=== PATIENT | female | born 1965 | race African-American/Black ===

== ENCOUNTER → 2018-03-09 | Day surgery (SDC) | payer OTHER ==
[~2018-03-09] MED LIST: AMLODIPINE BESY10 MG PO; FENTANYL CITRATE/PF 100MCG/2 ML INJ ONE; GLUCOPHAGE500 MG PO; HYDROXYZINE HCL25 MG PO; HYOSCYAMINE SULFATE 0.5 MG/ML AMP ONE; LIDOCAINE HCL 2% LOCAL INJ 5 ML SDV VIAL INJ ONE; LOVASTATIN10 MG PO; MIDAZOLAM HCL 2 MG/2 ML VIAL ONE; PREDNISONE10 MG PO; PROPOFOL IV EMULSION 10 MG/ML 20 ML VIAL ONE
--- OUTSIDE RECORDS SUMMARY | 2018-03-09 06:56 | XMS REPORT ---
Author Author Admin, [facility] [place] Address Unknown Phone Unavailable Allergies, Adverse Reactions, Alerts Allergy Name Reaction Description Start Date Severity Status Provider No Known Allergies Court Johnson MA Conditions or Problems Problem Name Problem Code Onset Date Status Entry Date Provider Comment Standard Description Annotate C-reactive protein, serum, elevated 790.95 Active Shellie HUYNH Elevated C-reactive protein (CRP) Diabetes mellitus, type II 250.00 Active Shellie ROTHP Diabetes mellitus without mention of complication, type II or unspecified type, not stated as uncontrolled Joint pain 719.40 Active Shellie ROTHP Pain in joint, site unspecified generalized joint pain Annual exam V70.0 Active Shellie ROTHP Routine general medical examination at a health care facility Blood in stools 578.1 Active Shellie HUYNH Blood in stool Evaluation for sleep apnea (procedure) V82.89 Active Shellie ORTHP Screening for other specified conditions Hives 708.9 Active Shellie HUYNH Unspecified urticaria Mammogram yearly screening V76.12 Active Shellie ROTHP Other screening mammogram Pruritus 698.9 Active Shellie ROTHP Unspecified pruritic disorder generalized Snoring 786.09 Active Shellie ROTHP Other dyspnea and respiratory abnormality Tonsil hypertrophy 474.11 Active Shellie ROTHP Hypertrophy of tonsils alone Fibroadenoma 215.9 Active Althea Roopani DO Other benign neoplasm of connective and other soft tissue, site unspecified Breast lump or mass, left 611.72 Active Sundeep Singer MD Lump or mass in breast per mammogram 03/20/17 Rash 782.1 Active Sundeep Singer MD Rash and other nonspecific skin eruption Vulvar lesion 624.8 Active Sundeep Singer MD Other specified noninflammatory disorders of vulva and perineum Allergic rhinitis 477.9 Active Laci Lara MD ( res) Allergic rhinitis, cause unspecified Cough NOS 786.2 Active Laci Lara MD (res) Cough Hypertension 401.9 Active Sundeep Singer MD Unspecified essential hypertension Obesity Active Sundeep Singer MD Obesity, unspecified Osteoarthritis, cervical spine 721.90 Active Sundeep Singer MD Spondylosis of unspecified site without mention of myelopathy Screening, colon cancer V76.51 Active Jairo Serra Screening for malignant neoplasms of colon Screening, STD V74.5 Inactive Shellie Hugo [employer] Screening examination for venereal disease Screening, STD ICD-V74.5 Inactive Shellie Hugo [employer] REPRESENT[employer]IVE Acute stress disorder 308.3 Inactive Althea Roopani DO Other acute reactions to stress Acute stress disorder ICD-308.3 Inactive Althea Roopani DO Screening for breast cancer ICD-V76.10 Inactive Althea Roopani DO Screening for diabetes mellitus ICD-V77.1 Inactive Althea Roopani DO Screening for lipid disorder ICD-V77.91 Inactive Althea Roopani DO Screening for breast cancer V76.10 Resolved Sundeep Singer MD Breast screening, unspecified Screening for diabetes mellitus V77.1 Resolved Sundeep Singer MD Screening for diabetes mellitus Screening for lipid disorder V77.91 Resolved Sundeep Singer MD Screening for lipoid disorders Screening, colon cancer V76.51 Resolved Sundeep Singer MD Screening for malignant neoplasms of colon Medication List Medication Instructions Start Date Stop Date Generic Name NDC Status Provider Patient Instruction BLOOD PRESSURE MONITOR/S CUFF check once daily MISC. DEVICES 63752339351 Active Shellie ROTHP Active LOVASTATIN 10 MG ORAL TABLET 1 by mouth every night LOVASTATIN 13912709522 Active Shellie Hugo [facility] Active METFORMIN HCL 500 MG ORAL TABLET 1 by mouth once a day METFORMIN HCL 36931894125 Active Shellie ROTHP Active PREDNISONE 10 MG ORAL TABLET 1 tablet by mouth daily PREDNISONE 71340554940 Active Shellie Hugo [facility] Active CYANOCOBALAMIN 1000 MCG/ML INJECTION SOLUTION 1000mcg IM/SC once monthly 2017 CYANOCOBALAMIN 56493530560 Active Shellie Hugo [facility] Active HYDROXYZINE HCL 25 MG ORAL TABLET 1 by mouth every 6 hours as needed HYDROXYZINE HCL 04168647207 Active Shellie Hugo [facility] Active BROMFED DM 30-2-10 MG/5ML ORAL SYRUP 2 teaspoons every 6 hours [id number] 21856080570 Active Althea Roopani DO Active PROAIR HFA 108 (90 Base) MCG/ACT INHALATION AEROSOL SOLUTION Use 2 puffs every every 4-6 hours as needed ALBUTEROL SULFATE 21265889842 Active Althea Roopani DO Active TRIAMCINOLONE ACETONIDE 0.1 % EXTERNAL CREAM apply to affected area twice a day TRIAMCINOLONE ACETONIDE 66582458010 Active Lathea Roopani DO Active FLONASE ALLERGY RELIEF 50 MCG/ACT NASAL SUSPENSION 2 sprays each nostril every day FLUTICASONE PROPIONATE 12815512028 Active Laci Lara MD (res) Active AMLODIPINE BESYLATE 10 MG ORAL TABLET 1 tab by mouth daily AMLODIPINE BESYLATE 06074022136 Active Althea Roopakelli DO Active DIOVAN 160 MG ORAL TABLET 1 tablet by mouth twice daily VALSARTAN 59597188932 Active Shellieelsy Hugo [employer] REPRESENTATIVE Active TESSALON PERLES 100 MG ORAL CAPSULE 1 by mouth 3 times a day as needed for cough TESSALON PERLES 100 MG ORAL CAPSULE 301608 BENZONATATE Inactive TESSALON PERLES 100 MG ORAL CAPSULE 1 by mouth 3 times a day as needed for cough BENZONATATE 73120188724 No Longer Active Sundeep Singer MD Active Vital Signs Date Name Value Unit Range Description blood pressure, diastolic 92 mm[Hg] BP jane blood pressure, systolic 138 mm[Hg] BP sys height E&M 73 [in_us] Bdy height pulse rate E&M 87 /min Heart rate respiratory rate E&M 16 /min Resp rate temperature E&M 98.3 [degF] Body temperature weight E&M 234.40 [lb_av] Weight Measured blood pressure, diastolic 100 mm[Hg] BP jane blood pressure, systolic 144 mm[Hg] BP sys height E&M 73 [in_us] Bdy height pulse rate E&M 85 /min Heart rate respiratory rate E&M 18 /min Resp rate temperature E&M 98.1 [degF] Body temperature weight E&M 235 [lb_av] Weight Measured blood pressure, diastolic 97 mm[Hg] BP jane blood pressure, systolic 148 mm[Hg] BP sys height E&M 73 [in_us] Bdy height pulse rate E&M 76 /min Heart rate respiratory rate E&M 16 /min Resp rate temperature E&M 98.2 [degF] Body temperature weight E&M 232 [lb_av] Weight Measured blood pressure, diastolic 95 mm[Hg] BP jane blood pressure, systolic 139 mm[Hg] BP sys height E&M 73 [in_us] Bdy height pulse rate E&M 73 /min Heart rate respiratory rate E&M 17 /min Resp rate temperature E&M 97.7 [degF] Body temperature weight E&M 231.40 [lb_av] Weight Measured Diagnostic Results Date Name Value Unit Range Description Lab Report: BIANCA+RA+CRP+ASO+ESR, Allergens, Zone 7, Allergens w/Total IgE ... - Chemistry c-reactive protein, quantitative, serum 9.6 mg/L 0.0-4.9 Lab Report: BIANCA+RA+CRP+ASO+ESR, Allergens, Zone 7, Allergens w/Total IgE ... - Hematology lymphocyte count, blood, automated 2.5 X10E3/UL 10*3/mm3 0.7- 3.1 Lab Report: BIANCA+RA+CRP+ASO+ESR, Allergens, Zone 7, Allergens w/Total IgE ... - Chemistry urea nitrogen, blood 11 mg/dL 6-24 Lab Report: BIANCA+RA+CRP+ASO+ESR, Allergens, Zone 7, Allergens w/Total IgE ... - Serology rheumatoid factor <10.0 IU/mL [iU]/mL 0.0-13.9 Lab Report: BIANCA+RA+CRP+ASO+ESR, Allergens, Zone 7, Allergens w/Total IgE ... - Chemistry creatinine, serum 0.74 mg/dL 0.57-1.00 chloride, serum 100 mmol/L 96-106 Lab Report: BIANCA+RA+CRP+ASO+ESR, Allergens, Zone 7, Allergens w/Total IgE ... - Hematology mean corpuscular volume, RBC 83 fL 79-97 Lab Report: BIANCA+RA+CRP+ASO+ESR, Allergens, Zone 7, Allergens w/Total IgE ... - Chemistry triglyceride, serum, fasting 139 mg/dL 0-149 Lab Report: BIANCA+RA+CRP+ASO+ESR, Allergens, Zone 7, Allergens w/Total IgE ... - Hematology erythrocyte (RBC) count 5.04 X10E6/UL 10*6/mm3 3.77-5.28 Lab Report: BIANCA+RA+CRP+ASO+ESR, Allergens, Zone 7, Allergens w/Total IgE ... - Chemistry Estimated Glomerular Filtration Rate (calc) 93 mL/min/1.73m2 > 59 Lab Report: BIANCA+RA+CRP+ASO+ESR, Allergens, Zone 7, Allergens w/Total IgE ... - Hematology platelet count 258 X10E3/UL 10*3/mm3 308-711 4453/03/27 red blood cell distribution width 15.5 % 12.3-15.4 Lab Report: BIANCA+RA+CRP+ASO+ESR, Allergens, Zone 7, Allergens w/Total IgE ... - Chemistry protein, total, serum 7.3 g/dL 6.0-8.5 HDL cholesterol, serum 51 mg/dL >39 Lab Report: BIANCA+RA+CRP+ASO+ESR, Allergens, Zone 7, Allergens w/Total IgE ... - Serology antinuclear antibody Negative Negative Lab Report: BIANCA+RA+CRP+ASO+ESR, Allergens, Zone 7, Allergens w/Total IgE ... - Chemistry albumin/globulin ratio, serum 1.7 1.2-2.2 Lab Report: BIANCA+RA+CRP+ASO+ESR, Allergens, Zone 7, Allergens w/Total IgE ... - Hematology eosinophils as percent of blood leukocytes 3 % Not Estab. Lab Report: BIANCA+RA+CRP+ASO+ESR, Allergens, Zone 7, Allergens w/Total IgE ... - Chemistry Absolute Neutrophils 2.6 X10E3/UL 10*3/uL 1.4-7.0 Lab Report: Comp. Metabolic Panel (14), Lipid Panel, Microalb/Creat Rati ... - Chemistry microalbumin/creatinine ratio, urine 7.1 MG/G CREAT ug/mg 0.0- 30.0 Lab Report: BIANCA+RA+CRP+ASO+ESR, Allergens, Zone 7, Allergens w/Total IgE ... - Hematology basophil count, absolute 0.0 x10E3/uL 0.0-0.2 Lab Report: BIANCA+RA+CRP+ASO+ESR, Allergens, Zone 7, Allergens w/Total IgE ... - Chemistry alanine aminotransferase (SGPT), serum 30 U/L 0-32 LDL cholesterol, serum 171 mg/dL 0-99 Lab Report: BIANCA+RA+CRP+ASO+ESR, Allergens, Zone 7, Allergens w/Total IgE ... - Hematology monocytes as percent of blood leukocytes 9 % Not Estab. Lab Report: BIANCA+RA+CRP+ASO+ESR, Allergens, Zone 7, Allergens w/Total IgE ... - Chemistry cholesterol, serum 250 mg/dL 100-199 Lab Report: BIANCA+RA+CRP+ASO+ESR, Allergens, Zone 7, Allergens w/Total IgE ... - Hematology mean corpuscular hemoglobin concentration, RBC 34.2 G/DL % 31.5- 35.7 hemoglobin, blood 14.3 g/dL 11.1-15.9 leukocyte count, blood 5.7 X10E3/UL 10*3/mm3 3.4-10.8 Lab Report: BIANCA+RA+CRP+ASO+ESR, Allergens, Zone 7, Allergens w/Total IgE ... - Chemistry B-12, serum >2000 pg/mL pg/mL 232-1245 Lab Report: BIANCA+RA+CRP+ASO+ESR, Allergens, Zone 7, Allergens w/Total IgE ... - Hematology hematocrit, blood 41.8 % 34.0-46.6 Lab Report: BIANCA+RA+CRP+ASO+ESR, Allergens, Zone 7, Allergens w/Total IgE ... - Chemistry globulin, serum 2.7 1.5-4.5 antistreptolysin O titer <20.0 IU/mL [iU]/mL 0.0-200.0 Lab Report: BIANCA+RA+CRP+ASO+ESR, Allergens, Zone 7, Allergens w/Total IgE ... - Lab immunoglobulin E, serum, quantitative 83 [iU]/mL 0-100 Lab Report: BIANCA+RA+CRP+ASO+ESR, Allergens, Zone 7, Allergens w/Total IgE ... - Chemistry albumin, serum 4.6 g/dL 3.5-5.5 very low density lipoproteins 28 mg/dL 5-40 Lab Report: BIANCA+RA+CRP+ASO+ESR, Allergens, Zone 7, Allergens w/Total IgE ... - Hematology basophils as percent of blood leukocytes 1 % Not Estab. Lab Report: BIANCA+RA+CRP+ASO+ESR, Allergens, Zone 7, Allergens w/Total IgE ... - Chemistry calcium, serum 9.6 mg/dL 8.7-10.2 Lab Report: BIANCA+RA+CRP+ASO+ESR, Allergens, Zone 7, Allergens w/Total IgE ... - Urinalysis microalbumin/total urine volume 14.7 mg/L Not Estab. Lab Report: BIANCA+RA+CRP+ASO+ESR, Allergens, Zone 7, Allergens w/Total IgE ... - Hematology monocyte count, blood, automated 0.5 X10E3/UL 10*3/uL 0.1-0.9 Lab Report: BIANCA+RA+CRP+ASO+ESR, Allergens, Zone 7, Allergens w/Total IgE ... - Chemistry urea nitrogen/creatinine ratio, serum 15 9-23 immature granulocytes, percentage of total cells, blood 0 % Not Estab. Lab Report: BIANCA+RA+CRP+ASO+ESR, Allergens, Zone 7, Allergens w/Total IgE ... - Genetics/fertility eGFR if 108 mL/min/1.73m2 >59 Lab Report: BIANCA+RA+CRP+ASO+ESR, Allergens, Zone 7, Allergens w/Total IgE ... - Hematology lymphocytes as percent of blood leukocytes 43 % Not Estab. Lab Report: BIANCA+RA+CRP+ASO+ESR, Allergens, Zone 7, Allergens w/Total IgE ... - Chemistry carbon dioxide, venous blood 24 mmol/L 18-29 Lab Report: BIANCA+RA+CRP+ASO+ESR, Allergens, Zone 7, Allergens w/Total IgE ... - Serology rapid plasma reagin antibody, serum Non Reactive Non Reactive Lab Report: BIANCA+RA+CRP+ASO+ESR, Allergens, Zone 7, Allergens w/Total IgE ... - Lab chlamydia DNA probe Negative Negative Lab Report: BIANCA+RA+CRP+ASO+ESR, Allergens, Zone 7, Allergens w/Total IgE ... - Microbiology Neisseria gonorrhoeae DNA probe Negative Negative Lab Report: BIANCA+RA+CRP+ASO+ESR, Allergens, Zone 7, Allergens w/Total IgE ... - Chemistry sodium, serum 140 mmol/L 134-144 Lab Report: BIANCA+RA+CRP+ASO+ESR, Allergens, Zone 7, Allergens w/Total IgE ... - Hematology erythrocyte sedimentation rate 10 mm/h 0-40 Lab Report: BIANCA+RA+CRP+ASO+ESR, Allergens, Zone 7, Allergens w/Total IgE ... - Chemistry hemoglobin A1C, blood, as % of total hemoglobin 6.7 % 4.8-5.6 alkaline phosphatase, serum 85 U/L 39-117 Lab Report: BIANCA+RA+CRP+ASO+ESR, Allergens, Zone 7, Allergens w/Total IgE ... - Hematology Eosinophil Absolute Count 0.2 X10E3/UL 10*3/uL 0.0-0.4 Lab Report: BIANCA+RA+CRP+ASO+ESR, Allergens, Zone 7, Allergens w/Total IgE ... - Chemistry folate, serum 12.4 ng/mL >3.0 Lab Report: BIANCA+RA+CRP+ASO+ESR, Allergens, Zone 7, Allergens w/Total IgE ... - Hematology mean corpuscular hemoglobin, RBC 28.4 pg 26.6-33.0 Lab Report: BIANCA+RA+CRP+ASO+ESR, Allergens, Zone 7, Allergens w/Total IgE ... - Chemistry creatinine, random, urine 269.7 mg/dL Not Estab. bilirubin, serum, total 0.4 mg/dL 0.0-1.2 Lab Report: BIANCA+RA+CRP+ASO+ESR, Allergens, Zone 7, Allergens w/Total IgE ... - Hematology neutrophils as percent of blood leukocytes 44 % Not Estab. Lab Report: BIANCA+RA+CRP+ASO+ESR, Allergens, Zone 7, Allergens w/Total IgE ... - Chemistry potassium, serum 4.2 mmol/L 3.5-5.2 blood glucose, random 100 mg/dL 65-99 aspartate aminotransferase (SGOT), serum 19 U/L 0-40 Encounters Date Encounter Provider Code Facility 14:08:20 CDT Est Patient Detailed - [id number] Shellie Hugo [facility] CPT- 73037 [facility] 09:53:51 CDT Est Patient Exp Problem - [id number] Althea Vorani DO CPT- 01625 [facility] 12:19:33 CDT Est Patient Exp Problem - [id number] Laci Lara MD ( res) CPT-57594 [facility] 09:41:21 CDT New Patient Detailed - [id number] Althea Vielkani DO CPT- 32523 [facility] Procedures Code Procedure Name Date Entry Date Standard Description CPT-77788 IM or SQ Injection 08:31:14 CDT CPT-J1100 Injection, dexamethasone sodium phosphate, 1mg 08:31:14 CDT CPT-74661 Est Patient Well Exam (40 - 64 Yrs) - 16405 16:25:58 CDT
== END | disposition home or self-care (01) ==
LOC: OR 06:54
PROVIDERS: ATTEND Internal Medicine Gastroenterology
PROC: 0DB68ZZ Excision of Stomach, Via Natural or Artificial Opening Endoscopic (ICD-10-PCS; principal; 2018-03-09 08:22)
PROC: 0DJD8ZZ Inspection of Lower Intestinal Tract, Via Natural or Artificial Opening Endoscopic (ICD-10-PCS; 2018-03-09 08:22)
DX: Z12.11 Encounter for screening for malignant neoplasm of colon (principal); K29.70 Gastritis, unspecified, without bleeding; K21.0 Gastro-esophageal reflux disease with esophagitis; K44.9 Diaphragmatic hernia without obstruction or gangrene; K57.30 Diverticulosis of large intestine without perforation or abscess without bleeding; K63.89 Other specified diseases of intestine; K64.8 Other hemorrhoids; I10 Essential (primary) hypertension; E78.5 Hyperlipidemia, unspecified; E11.9 Type 2 diabetes mellitus without complications; Z01.810 Encounter for preprocedural cardiovascular examination; Z79.84 Long term (current) use of oral hypoglycemic drugs; Z68.33 Body mass index [BMI] 33.0-33.9, adult; Z83.79 Family history of other diseases of the digestive system
CPT/HCPCS: 36415; 43239; 45378; 82948; 93005; J1980; J2001; J2250